=== PATIENT | male | born 2000 | race Caucasian/White ===

== ENCOUNTER 2021-06-21 17:19 | Emergency (ER) | payer OTHER, SELFPAY ==
--- NOTE | ~2021-06-21 | XR_ITS ---
XR wrist RT 2V DATE: 06/21/2021 17:45 INDICATION: Medial wrist pain after wrist injury one month ago TECHNIQUE: AP and lateral views COMPARISON: None FINDINGS: No fracture or dislocation, periosteal reaction or bone destruction. Joint spaces are prese rved. No erosive change or chondrocalcinosis. IMPRESSION: Negative Reviewed, dictated and finalized at location A. IMPRESSION: Negative
[2021-06-21 17:42] VITALS: BP 112/80; PULSE 88; RESP 18; TEMP 36.6; O2SAT 98
--- NOTE | 2021-06-21 18:02 | ED.LOWEXIN ---
HPI - Extremity Injury (Lower) General Chief Complaint: Extremity Injury, Upper Stated Complaint: R hand injury Source: patient Mode of arrival: ambulatory Limitations: no limitations History of Present Illness HPI Narrative: this is a 21-year-old male presents with some right hand pain after he had an injury approximately 1 month ago, has continued pain but has good range of motion has a strong brisk radial pulse on the right there is no numbness or tingling no obvious deformities. Rates his pain about a 6/10, has some tried marijuana for pain relief MD complaint: other ( right hand pain) Onset (ago): month(s) Type of Injury: blunt Place: work Severity: moderate Severity scale (1-10): 6 Relieving factors: NSAID Related Data Home Medications Medication Instructions Recorded Confirmed No Home Medications 06/21/21 06/21/21 Allergies Allergy/AdvReac Type Severity Reaction Status Date / Time No Known Allergies Allergy Mild Verified 10/17/10 16:40 Review of Systems Review of Systems: All systems reviewed & are unremarkable except as noted in HPI and below PMFSH Past Medical History Medical History Patient denies medical problems Exam Const: General: no acute distress Orientation/consciousness: patient oriented x3 HENMT: Head: normal to inspection Eyes: Conjunctivae: conjunctivae normal Pupils: Equal, round and reactive pupils present Neck: Neck: normal visual inspection, no lymphadenopathy and no meningeal signs Chest: Chest palpation & inspection: normal inspection of the chest Resp: Effort & Inspection: normal respiratory effort Auscultation: clear to auscultation bilaterally Cardio: Rate: regular rate Rhythm: regular rhythm GI: GI Palp: Yes Soft to palpation Urinary Catheter: Urinary Catheter: patent and draining Back/Spine/Pelvis: Back: no CVA tenderness Skin: General skin exam: normal color Rashes: no rashes Neuro: General: patient oriented x3, moves all extremities and no meningeal signs Extrem: General: normal to inspection Other: tender with palpation right hand and wrist Psych: Mental Status: mental status grossly normal Affect: normal affect Course Course Emergency Course: advised patient to follow-up with his primary care physician, take Tylenol or Motrin, and x-ray of his right hand and wrist were reviewed with patient with no fractures. Vital Signs Vital signs: Vital Signs Temperature 36.6 C 06/21/21 17:42 Pulse Rate 88 06/21/21 17:42 Respiratory Rate 18 06/21/21 17:42 Blood Pressure 112/80 06/21/21 17:42 Pulse Oximetry 98 06/21/21 17:42 Temperature 36.6 C 06/21/21 17:42 Pulse Rate 88 06/21/21 17:42 Respiratory Rate 18 06/21/21 17:42 Blood Pressure 112/80 06/21/21 17:42 Pulse Oximetry 98 06/21/21 17:42 Critical Care Time Critical Care Time Critical Care Time: No Discharge Plan Discharge Clinical Impression: Sprain and strain of wrist Patient Disposition: Home, Self-Care Condition: Stable Instructions: Antibiotic Form, Hand Sprain (ED) Additional Instructions: advised to take Tylenol or Motrin for pain and inflammation continue wrist splint and follow-up with primary care physician within 1 to 2 weeks further evaluation treatment. Prescriptions: No Action No Home Medications RF: 0 Follow-up/Referrals: UNKNOWN,DOCTOR [Primary Care Provider] - Time of Disposition: 18:06
[2021-06-21 18:29] VITALS: BP 118/60; PULSE 78; RESP 18; TEMP 36.6; O2SAT 98
== END 2021-06-21 18:37 | disposition home or self-care (01) ==
PROVIDERS: Emergency Provider Emergency Medicine
DX: S63.501A Unspecified sprain of right wrist, initial encounter (principal)
CPT/HCPCS: 73100; 99282; 99283; L3908